=== PATIENT | female | born 1945 ===

== ENCOUNTER 2018-01-24 14:47 | Emergency (ER) | payer OTHER ==
[2018-01-24 15:01] VITALS: RESP 18; O2SAT 96
--- NOTE | 2018-01-24 15:47 | RAD ---
Date of service: 01/24/2018 HISTORY: Shortness of breath COMPARISON: No prior. TECHNIQUE: Chest PA and lateral FINDINGS: LINES AND TUBES: None. LUNG AND PLEURA: The lungs are well inflated and clear. A surgical clips overlies the left lower lobe and 2 small surgical clips overlie the right lower lobe. No pleural effusion or pneumothorax. HEART AND MEDIASTINUM: The heart is not enlarged. Atherosclerotic aortic arch calcifications are present. The hilar and mediastinal contours are within normal limits. SKELETAL STRUCTURES: The bony structures are within normal limits for the patient's age. VISUALIZED UPPER ABDOMEN: Normal. OTHER FINDINGS: There are surgical clips in the left axilla. IMPRESSION: No active pulmonary disease.
--- NOTE | 2018-01-24 15:51 | C.PDOC ---
History Of Present Illness 73 year old female presents to the ED for evaluation of productive cough, spitting sputum, and nasal congestion for 1 week. Patient reports low grade fever last night and taking over the counter medications with no improvement. Denies shortness of breath, chest pain, palpitations, nausea, vomiting, diarrhea, abdominal pain, and any other associated symptoms. Time Seen by Provider: 01/24/18 15:07 Chief Complaint (Nursing): Cough, Cold, Congestion History Per: Patient History/Exam Limitations: no limitations Onset/Duration Of Symptoms: Days Current Symptoms Are (Timing): Still Present Past Medical History Reviewed: Historical Data, Nursing Documentation, Vital Signs Vital Signs: Last Vital Signs Temp 98.3 F 01/24/18 14:56 Pulse 96 H 01/24/18 14:56 Resp 18 01/24/18 14:56 BP 173/73 H 01/24/18 14:56 Pulse Ox 96 01/24/18 14:56 - Medical History PMH: HTN, Hypercholesterolemia Family History: States: Unknown Family Hx - Social History Hx Alcohol Use: Yes Hx Substance Use: No - Immunization History Hx Tetanus Toxoid Vaccination: No Hx Influenza Vaccination: Yes Hx Pneumococcal Vaccination: Yes Review Of Systems Constitutional: Positive for: Fever (subjective. ) ENT: Positive for: Nose Congestion Cardiovascular: Negative for: Chest Pain, Palpitations Respiratory: Positive for: Cough (productive. ). Negative for: Shortness of Breath Gastrointestinal: Negative for: Nausea, Vomiting, Abdominal Pain, Diarrhea Physical Exam - Physical Exam Appears: Non-toxic, No Acute Distress Skin: Warm, Dry Head: Atraumatic, Normacephalic Eye(s): bilateral: Normal Inspection, EOMI Ear(s): Bilateral: Normal Nose: Normal, No Flaring Oral Mucosa: Moist Throat: Normal, No Erythema, No Exudate Neck: Normal ROM, Supple Chest: Symmetrical Cardiovascular: Rhythm Regular, No Murmur Respiratory: Normal Breath Sounds, No Rales, No Rhonchi, No Wheezing Extremity: Bilateral: Atraumatic, Normal Color And Temperature, Normal ROM Neurological/Psych: Oriented x3, Normal Speech ED Course And Treatment O2 Sat by Pulse Oximetry: 96 (RA) Pulse Ox Interpretation: Normal Medical Decision Making Medical Decision Making: Plan: -CXR -Zithromax Progress/Update: Patient is stable for discharge home. Prescribed Tesaalon Perles and Zithromax. Disposition Counseled Patient/Family Regarding: Diagnosis, Need For Followup, Rx Given - Disposition Referrals: [facility] [Outside] [facility] [Outside] Disposition: HOME/ ROUTINE Disposition Time: 16:10 Condition: GOOD Additional Instructions: Vaya a mojica mdico o la clnica en 2-5 alonso sin falta, para mas evaluacin. [place] los medicamentos bill indicado. Volver a la jose de emergencia en cualquier momento si los sntomas persisten o empeoran. Prescriptions: Azithromycin [Zithromax] 250 mg PO DAILY #4 tab Azithromycin [Zithromax] 250 mg PO DAILY #4 tab Benzonatate [Tessalon Perles] 100 mg PO TID #30 sgl Benzonatate [Tessalon Perles] 100 mg PO TID #30 sgl Instructions: Upper Respiratory Infection (ED) Print Language: URDU - POA Present On Arrival: None - Clinical Impression Clinical Impression: Upper respiratory infection - PA / DOCTOR OF DENTAL MEDICINE / Resident Statement MD/DO has reviewed & agrees with the documentation as recorded. - Scribe Statement The provider has reviewed the documentation as recorded by the Scribe (Nany Whitney) All medical record entries made by the Scribe were at my direction and personally dictated by me. I have reviewed the chart and agree that the record accurately reflects my personal performance of the history, physical exam, medical decision making, and the department course for this patient. I have also personally directed, reviewed, and agree with the discharge instructions and disposition.
[2018-01-24 16:54] VITALS: BP 170/70; PULSE 94; TEMP 98
== END 2018-01-24 16:53 | disposition home or self-care (01) ==
LOC: C.ER 14:47
DX: J06.9 Acute upper respiratory infection, unspecified (principal)